=== PATIENT | female | born 1930 ===

== ENCOUNTER → 2018-03-26 | Outpatient (CLI) | payer MEDICARE, BC ==
--- NOTE | 2018-03-26 17:28 | XR ---
Chest x-ray with bilateral RIBS HISTORY: Pain, fall, trauma Frontal view of the chest and 4 views of bilateral ribs submitted on a total of 9 images and correlat ed to prior chest x-ray 07/31/2017 Pulmonary artery is thought to be massively enlarged. 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 Heart is enlarged. Posttraumatic change noted to the left humerus. Patchy bibasila r increased density is present, there is blunting of the costophrenic angles. Interstitium and centra l vascularity are prominent. No evident pneumothorax. Low bone mineralization may limit the exam. Aor ta and is dense. There is a spinal curvature. Postop changes may obscure detail. No gross displaced r ib fracture is evident. IMPRESSION: Correlate for congestive heart failure with pleural effusions. Exam is limited for evalua tion of rib fracture, bone scan could be performed for increased sensitivity as indicated. Possible u nderlying pulmonary artery hypertension. Cardiomegaly.
== END | disposition home or self-care (01) ==
LOC: RADXRYALE 13:39
PROVIDERS: ATTEND Internal Medicine
DX: I51.7 Cardiomegaly (principal)
CPT/HCPCS: 71111